=== PATIENT | female | born 1975 | race African-American/Black ===

== ENCOUNTER 2024-07-07 17:51 | Emergency (ER) | payer SELFPAY ==
[2024-07-07] MEDS ORDERED: Dexamethasone 10 MG/ML VIAL ONE (19:29)
[2024-07-07] MEDS ORDERED: diphenhydrAMINE 25 MG CAP ONE (19:30)
== END 2024-07-07 19:42 | disposition home or self-care (01) ==
LOC: ERS 17:51
DX: L30.9 Dermatitis, unspecified (principal); F17.290 Nicotine dependence, other tobacco product, uncomplicated
CPT/HCPCS: 96372; 99282; J1100